=== PATIENT | female | born 1985 | race Caucasian/White ===

== ENCOUNTER → 2017-10-21 | Outpatient (CLI) | payer BC ==
[~2017-10-21] MED LIST: LEVO125T72 PO; PRENTAB26 PO
[2017-10-21 12:12] LABS: BASO % 0.3 %; BASO ABS # 0.02 K/uL (0-0.2); EOS % 1.8 %; EOS ABS # 0.11 K/uL (0-0.5); HEMATOCRIT 38.8 % (37-47); HEMOGLOBIN 13.8 g/dL (12.0-16.0); IG# 0.04 K/uL (0.00-0.02); LYMPH % 28.1 %; LYMPH ABS # 1.71 K/uL (1.2-3.4); MEAN CELL VOLUME 90.7 fL (80-100); MEAN CORPUSCULAR HEMOGLOBIN 32.2 pg (25-34); MEAN CORPUSCULAR HGB CONC 35.6 g/dl (32-36); MEAN PLATELET VOLUME 10.5 fL (7.4-10.4); MONO % 8.7 %; MONO ABS # 0.53 K/uL (0.11-0.59); NEUT % 60.4 %; NEUT ABS # 3.67 K/uL (1.4-6.5); PLATELET COUNT 253 K/uL (130-400); RED CELL DISTRIBUTION WIDTH CV 13.4 % (11.5-14.5); RED CELL DISTRIBUTION WIDTH SD 43.7 fL (36.4-46.3); WHITE BLOOD COUNT 6.08 K/uL (4.8-10.8)
== END | disposition home or self-care (01) ==
LOC: C.LAB1850 09:30
PROVIDERS: ATTEND Obstetrics & Gynecology
DX: O99.280 Endocrine, nutritional and metabolic diseases complicating pregnancy, unspecified trimester (principal); Z3A.00 Weeks of gestation of pregnancy not specified

== ENCOUNTER → 2017-10-21 | Outpatient (CLI) | payer BC | END | disposition home or self-care (01) | LOC: C.PAPS 10:51 | PROVIDERS: ATTEND Obstetrics & Gynecology | DX: Z01.419 Encounter for gynecological examination (general) (routine) without abnormal findings (principal); N87.1 Moderate cervical dysplasia ==

== ENCOUNTER → 2017-12-09 | Outpatient (CLI) | payer BC | END | disposition home or self-care (01) | LOC: C.LAB1850 16:32 | PROVIDERS: ATTEND Obstetrics & Gynecology | DX: Z34.02 Encounter for supervision of normal first pregnancy, second trimester (principal); Z3A.00 Weeks of gestation of pregnancy not specified ==

== ENCOUNTER → 2017-12-22 | Outpatient (CLI) | payer BC | END | disposition home or self-care (01) | LOC: C.LAB1850 07:41 | PROVIDERS: ATTEND Obstetrics & Gynecology | DX: O28.1 Abnormal biochemical finding on antenatal screening of mother (principal) ==

== ENCOUNTER → 2018-03-02 | Outpatient (CLI) | payer BC | END | disposition home or self-care (01) | LOC: C.LABSPEC 17:41 | PROVIDERS: ATTEND Obstetrics & Gynecology | DX: Z34.03 Encounter for supervision of normal first pregnancy, third trimester (principal) ==

== ENCOUNTER → 2018-03-03 | Outpatient (CLI) | payer BC ==
[2018-03-03 09:36] LABS: HEMATOCRIT 35.4 % (37-47); HEMOGLOBIN 12.7 g/dL (12.0-16.0)
== END | disposition home or self-care (01) ==
LOC: C.LAB1850 07:20
PROVIDERS: ATTEND Obstetrics & Gynecology
DX: Z34.03 Encounter for supervision of normal first pregnancy, third trimester (principal); Z3A.00 Weeks of gestation of pregnancy not specified

== ENCOUNTER 2018-05-28 06:31 | Inpatient (IN) | payer BC ==
[~2018-05-28] VITALS: Ht 170.2 cm; Wt 86.2 kg
[2018-05-28] MEDS ORDERED: LACTATED RINGER'S 1000ML 1,000 ML IV PRN (06:55)
[2018-05-28 07:25] LABS: HEMATOCRIT 39.4 % (37-47); HEMOGLOBIN 13.9 g/dL (12.0-16.0); MEAN CELL VOLUME 92.9 fL (80-100); MEAN CORPUSCULAR HEMOGLOBIN 32.8 pg (25-34); MEAN CORPUSCULAR HGB CONC 35.3 g/dl (32-36); MEAN PLATELET VOLUME 10.7 fL (7.4-10.4); PLATELET COUNT 177 K/uL (130-400); RED CELL DISTRIBUTION WIDTH CV 13.5 % (11.5-14.5); WHITE BLOOD COUNT 14.09 K/uL (4.8-10.8)
[2018-05-28] MEDS ORDERED: BUPIVACAINE 0.25% 30 ML VIAL ONE (07:42)
[2018-05-28] MEDS ORDERED: FENTANYL CITRATE INJ 50 MCG/1 ML 2 ML VIAL ONE (07:43)
[2018-05-28] MEDS ORDERED: EpHEDrine SULFATE INJ 50 MG/ML AMP ONE (07:43)
[2018-05-28] MEDS ORDERED: FENTANYL 2MCG/ML ROPIV 1.25MG/ML 100ML BAG ONE (07:44)
[2018-05-28] MEDS: LACTATED RINGER'S 1000ML 1,000 ML IV SCH ×2 (08:15→08:27)
[2018-05-28] MEDS ORDERED: NALOXONE HCL INJ 1 MG in SODIUM CHLORIDE 0.9% 1000ML 1,000 ML IV PRN (08:38)
[2018-05-28] MEDS ORDERED: LACTATED RINGER'S 1000ML 500 ML IV PRN ×2 (08:38→11:06)
[2018-05-28] MEDS ORDERED: EpHEDrine SULFATE INJ 50 MG/ML AMP IV PRN (08:45)
[2018-05-28] MEDS ORDERED: NALOXONE HCL INJ 0.4 MG/1 ML VIAL/CARP IV PRN (08:45)
[2018-05-28] MEDS ORDERED: DiphenhydrAMINE HCL 50 MG/ML VIAL IV PRN (08:45)
[2018-05-28] MEDS ORDERED: FENTANYL 2MCG/ML ROPIV 1.25MG/ML 100ML BAG EPI PRN (08:45)
[2018-05-28] MEDS ORDERED: NALBUPHINE HCL INJ 10 MG/ML 1ML AMP IV PRN (08:45)
[2018-05-28] MEDS ORDERED: ONDANSETRON INJ 2 MG/ML 2 ML VIAL IV PRN (08:45)
[2018-05-28] MEDS ORDERED: PRENTAB26 PO (09:26)
[2018-05-28] MEDS ORDERED: LEVO125T72 PO (09:26)
[2018-05-28 09:30] VITALS: Ht 170.2 cm; Wt 86.2 kg
[2018-05-28] MEDS ORDERED: OXYTOCIN 30 UNITS/500ML NSS IV PRN ×2 (11:15→12:45)
[2018-05-28] MEDS ORDERED: OXYTOCIN INJ 20 UNITS in LACTATED RINGER'S 1000ML 1,000 ML IV SCH (12:38)
[2018-05-28] MEDS ORDERED: LANOLIN OINT EXT PRN (12:45)
[2018-05-28] MEDS ORDERED: ACETAMINOPHEN 325 MG TAB PO PRN (12:45)
[2018-05-28] MEDS ORDERED: DIPHTHERIA/TETANUS/PERTUSSIS 0.5 ML SYR/VIAL IM. ONE (12:45)
[2018-05-28] MEDS ORDERED: SUPERCREAM 0.870 % 15GM JAR EXT PRN (12:45)
[2018-05-28] MEDS ORDERED: BENZOCAINE 20% AER SPR 82.5 GM CAN EXT PRN (12:45)
[2018-05-28] MEDS ORDERED: HYDROCORTISONE ACETATE 25 MG SUPP PR PRN (12:45)
[2018-05-28] MEDS ORDERED: OXYCODONE/ACETAMINOPHEN 5-325 TAB PO PRN (12:45)
--- NOTE | 2018-05-28 12:59 | DELIVERY SUMMARY ---
DATE OF OPERATION: 05/28/2018 The patient dilated to complete and pushed to deliver a viable female infant, Apgars 8 and 9 via over second degree perineal laceration. Mouth and nose bulb suctioned at the perineum. vigorous at . Cord clamped and to maternal abdomen where the cord was then doubly clamped and cut. Of note, there was meconium-stained fluid. Placenta was delivered spontaneously and intact, 3-vessel cord. Hemostasis was achieved with dilute Pitocin and uterine massage. Cervix and sulci intact. Laceration repaired in usual fashion using 3-0 Vicryl. EBL 300 mL. Mother and baby stable in recovery. I attest to the content of the Intraoperative Record and any orders documented therein. Any exceptions are noted below. MTDD
--- NOTE | 2018-05-28 14:33 | Anesthesia Procedure Note ---
Anesthesia Epidural Removal Nt Date & Time May 28, 2018 at 14:33 Vital Signs Pain Intensity: 0.0 Notes Mental Status: alert / awake / arousable, participated in evaluation Nausea / Vomiting: adequately controlled Pain: adequately controlled Airway Patency, RR, SpO2: stable & adequate BP & HR: stable & adequate Hydration State: stable & adequate Neuraxial Anesthesia: was administered, sensory block is resolving Anesthetic Complications: no major complications apparent, pt satisfied with anesthetic care Epidural: removed without complications, with tip intact
[2018-05-28] MEDS: IBUPROFEN 600 MG TAB PO PRN ×2 (15:35→20:14)
[2018-05-28 16:00] VITALS: BP 109/66; PULSE 66; TEMP 36.8
[2018-05-28] MEDS: DOCUSATE SODIUM 100 MG CAP PO SCH (20:14)
[2018-05-28 20:15] VITALS: BP 108/71; PULSE 65; TEMP 36.5
[2018-05-28 23:05] VITALS: BP 115/76; PULSE 63; TEMP 36.6
[2018-05-29] MEDS: IBUPROFEN 600 MG TAB PO PRN ×5 (00:16→19:45)
[2018-05-29 03:45] VITALS: BP 115/67; PULSE 68; TEMP 36.9
--- NOTE | 2018-05-29 07:25 | Progress Note ---
Subjective May 29, 2018. Subjective conversation w/ patient Ambulation: ambulating normally Voiding: no voiding problems Passing Gas: Yes Diet Tolerance: Regular Diet Lochia: Moderate Pain: Improving Review of Systems Constitutional: No fever, No chills Respiratory: No shortness of breath Cardiac: No chest pain, No palpitations Abdomen: No nausea, No vomiting Female : No dysuria Objective Vital Signs Date Time Temp Pulse Resp B/P (MAP) Pulse Ox O2 Delivery O2 Flow Rate FiO2 05/29/18 03:45 36.9 68 18 115/67 (83) Room Air 05/28/18 23:05 36.6 63 20 115/76 (89) Room Air 05/28/18 23:05 Room Air 05/28/18 20:15 36.5 65 18 108/71 (83) Room Air 05/28/18 16:00 Room Air 05/28/18 16:00 36.8 66 16 109/66 (80) Room Air Physical Exam General Appearance: WELL-APPEARING, NO APPARENT DISTRESS Respiratory/Chest: normal breath sounds, no respiratory distress Cardiovascular: regular rate, rhythm Abdomen: soft Fundus: Firm Extremities: no calf tenderness Medications Current Inpatient Medications Medications (Trade) Dose Ordered Sig/Kp Route Start Time Stop Time Status Last Admin Dose Admin Levothyroxine Sodium (Synthroid Tab) 125 mcg DAILYBB PO 05/29/18 07:30 06/28/18 07:29 Oxytocin (Pitocin IV) 30 units UD PRN IV 05/28/18 12:45 06/27/18 12:44 05/28/18 14:27 30 UNITS Benzocaine (Dermoplast Aero Spr) 1 appln PRN PRN EXT 05/28/18 12:45 06/27/18 12:44 05/28/18 15:35 1 APPLN Cocaine HCl (Supercream 0.870% Cr) BID PRN EXT 05/28/18 12:45 06/11/18 12:44 Hydrocortisone Acetate (Anusol Hc Supp) 25 mg BID PRN NE 05/28/18 12:45 06/27/18 12:44 Lanolin (Lanolin Oint) PRN PRN EXT 05/28/18 12:45 06/27/18 12:44 Ibuprofen (Motrin Tab) 600 mg Q4H PRN PO 05/28/18 12:45 06/27/18 12:44 05/29/18 04:17 600 MG Acetaminophen (Tylenol Tab) 650 mg Q6H PRN PO 05/28/18 12:45 06/27/18 12:44 05/28/18 18:23 650 MG Oxycodone/ Acetaminophen (Percocet 5-325mg Tab) 1 tab Q4H PRN PO 05/28/18 12:45 06/11/18 12:44 Docusate Sodium (coLACE CAP) 100 mg BID PO 05/28/18 20:00 06/27/18 19:59 05/28/18 20:14 100 MG Assessment and Plan Post- Day#: 1 Continue Routine Care: Analgesia PRN Escalate diet as needed Ambulation encouraged. PGY [address] Cespedes Resident Physician Supervision Note: I was present with Dr. Cespedes during the history and exam. I discussed the case with the resident and agree with the findings and plan as documented in the note. Any exceptions or clarifications are listed here: Doing well. routine care. should already have regular diet. Documented By: Trinity Espinoza
[2018-05-29] MEDS: LEVOTHYROXINE 125 MCG TAB PO SCH (07:56)
[2018-05-29] MEDS: DOCUSATE SODIUM 100 MG CAP PO SCH ×2 (07:56→19:44)
[2018-05-29 08:00] VITALS: BP 111/72; PULSE 66; TEMP 36.7; O2SAT 97
[2018-05-29 11:42] VITALS: BP 107/68; PULSE 66; TEMP 36.6; O2SAT 96
[2018-05-29 15:35] VITALS: BP 118/73; PULSE 66; TEMP 36.9; O2SAT 96; O2SAT 97
[2018-05-30 00:05] VITALS: BP 106/65; PULSE 60; TEMP 36.9; O2SAT 95
[2018-05-30] MEDS: IBUPROFEN 600 MG TAB PO PRN ×2 (00:22→08:52)
--- NOTE | 2018-05-30 07:02 | Progress Note ---
Subjective May 30, 2018. Subjective conversation w/ patient Ambulation: ambulating normally Voiding: no voiding problems Passing Gas: Yes Diet Tolerance: Regular Diet Lochia: Moderate Feeding Type: Breast Feeding Pain: Improving Review of Systems Constitutional: No fever, No chills Respiratory: No shortness of breath Cardiac: No chest pain, No palpitations Abdomen: No nausea, No vomiting Female : No dysuria Objective Vital Signs Date Time Temp Pulse Resp B/P (MAP) Pulse Ox O2 Delivery O2 Flow Rate FiO2 05/30/18 00:05 95 Room Air 05/30/18 00:05 36.9 60 16 106/65 (79) 95 Room Air 05/29/18 15:35 36.9 66 20 118/73 (88) 97 Room Air 05/29/18 15:35 96 Room Air 05/29/18 11:42 36.6 66 18 107/68 (81) 96 Room Air 05/29/18 08:00 36.7 66 18 111/72 (85) 97 Room Air 05/29/18 07:55 Room Air Physical Exam General Appearance: WELL-APPEARING, NO APPARENT DISTRESS Respiratory/Chest: normal breath sounds Cardiovascular: regular rate, rhythm Abdomen: soft Fundus: Firm, Relation to Umbilicus (at umbilicus) Extremities: no calf tenderness Assessment and Plan Post- Day#: 1
--- NOTE | 2018-05-30 07:03 | Discharge Instructions ---
Discharge Instructions Date of Service May 30, 2018. Admission Reason for Admission: Check Labor Discharge Discharge Diagnosis / Problem: Vaginal Delivery Discharge Goals Goal(s): Routine recovery after delivery Medications Continue Dispensed Medications: supercream, dermaplast, tucks, lansinoh Activity Recommendations Activity Limitations: per Instructions/Follow-up section . Instructions / Follow-Up Instructions / Follow-Up ACTIVITY RECOMMENDATIONS: * Gradual return to full activity over the next 2-3 weeks. * No lifting - nothing heavier than baby over the next 2-3 weeks. * Do not engage in vigorous exercise, sexual activity or sports until cleared by your physician. * Do not drive or operate any motorized equipment until cleared by your physician. * You may shower/bathe daily. MEDICATIONS: For discomfort or pain, you may use Acetaminophen (Tylenol), Ibuprofen (Advil), or Naproxen (Aleve) following the package directions. For constipation you may use Colace following the package directions. BREAST CARE: If you are not breast feeding: * Wear a supportive bra 24 hours a day for one to two weeks. * Avoid stimulating your breasts and nipples as much as possible during the first few weeks after delivery. * When taking a shower, have the warm water hit your back, not breasts. * When your breasts feel full, apply ice packs. Usually three to four times a day helps ease the discomfort. * Take a mild pain medication (Tylenol / Motrin) when you are uncomfortable. If breast feeding: * Use breast milk to lubricate nipples. Lansinoh cream may be used for sore nipples. You do not need to remove cream prior to breast feeding. If using a different brand of cream, check the label for directions regarding removal of cream prior to nursing. * Wear a supportive bra. * If having problems with breasts or breast feeding, call a incident response consultant or your health care provider. EPISIOTOMY CARE: After delivery, if you have an episiotomy (stitches), the following steps will ease discomfort and aid healing. * For the first 24 hours after delivery, place ice packs next to your episiotomy to help reduce swelling. * After the first 24 hour-period, sitz baths, either portable or in the tub, are suggested. A shower with a shower arm sprayed over the episiotomy may be comforting. * Jihan care should be done after each voiding and bowel movement. Squirt warm water from a plastic bottle over the perineum (region of the body between the anus and urinary opening) and pat dry. * Use Dermoplast to ease discomfort. Shake container. Weikert directly over the episiotomy. Place a Tucks on a clean sanitary pad next to your episiotomy. SPECIAL CARE INSTRUCTIONS: When you are discharged from the hospital, it is important for you to follow the instructions listed below: * During the first week at home, you should be able to care for yourself and your baby. In addition, the usual light household activities are encouraged. * Limit your activities to the way you feel. Do not try to clean the house or move furniture. Be sensible. * If you actively engage in sports and have done so up until the time of your delivery, you may resume these activities as soon as you feel able. This may take up to one month or even longer. Use good judgment. * Continue to take your vitamins for at least six weeks after the of your baby. * Your diet need not be limited unless you were on a special diet before your delivery. Breast-feeding mothers need around 2500 calories per day and at least 64-80 ounces of fluid per day (8 to 10 glasses). * You should eat foods from the four major food groups. Crash diets or fad diets are to be avoided. Eating lean meats, fresh fruits and vegetables, low-fat dairy products, high fiber foods and a regular exercise program, will help you get back to your pre- weight without putting your health at risk. * Constipation is sometimes a problem after delivery. Take a mild laxative as needed. If breast feeding, Milk of Magnesia is acceptable to use. You may use a suppository or Fleets enema if no episiotomy. * A daily shower or tub bath is suggested. Be sure to thoroughly and gently dry the perineum. * A bloody vaginal discharge will usually continue until around four weeks post . A small amount of bleeding may continue for as long as six weeks. Vaginal discharge changes from the bright red bleeding after delivery to pink then brownish and finally yellowish-pink before becoming white and disappearing. * Bleeding may increase with activity. Your first period may come in 4-8 weeks. If you are breast feeding, your period may be delayed even longer. * Gomer (sex) can begin whenever both you and your partner feel comfortable and do not have any form of genital infection. It is recommended that you wait at least six weeks for internal and external healing to occur. If you have questions, please talk to your health care practitioner. A condom should be used to prevent infection and . * Foreplay, gentle intercourse and lubrication is very important the first several times to prevent pain. A water-based lubricant such as K-Y jelly or Astroglide may be used. * If you have RH negative blood and your baby is RH positive, you will receive RHOGAM by injection prior to discharge. The nurse will give you a card to keep with you that has the date and place that you received RHOGAM after delivery. * During your care, you had a Rubella screen done to check for the presence of rubella antibodies in your blood. If your test was negative, you will receive a Rubella vaccine prior to discharge. This vaccine may cause a fever, soreness at the injection site and flu-like symptoms. If these symptoms persist, notify your health care practitioner. is not advised for one month after a Rubella vaccine. * Verbalizes understanding of car seat law as reviewed with patient nursing. * Car Seat hand-out given and reviewed with patient by nursing. * Shaken baby information reviewed with patient by nursing. Call you doctor if: * Heavy bleeding (saturating several pads an hour) or passing clots the size of your fist. * A fever >101 degrees F (38.3 degrees C) on two occasions four hours apart and /or chills. * Unusual pain in the pelvic or vaginal areas. * "Baby Blues" lasting longer than two weeks. If you have any questions or concerns, call your health care practitioner at . FOLLOW UP VISIT: * Please call the office at to schedule a 6 week examination. It is important you keep this appointment. It is important for you to make arrangements for either yearly or twice yearly check-ups thereafter. Current Hospital Diet Patient's current hospital diet: Regular OB Diet Discharge Diet Recommended Diet: Regular OB Diet Pending Studies Studies pending at discharge: no Medical Emergencies . Who to Call and When: Medical Emergencies: If at any time you feel your situation is an emergency, please call 911 immediately. . Non-Emergent Contact Non-Emergency issues call your: Primary Care Provider . . "Provider Documentation" section prepared by Ashlee Cespedes. .
[2018-05-30 07:40] VITALS: BP 122/78; PULSE 57; TEMP 36.6; O2SAT 99
--- NOTE | 2018-05-30 07:43 | Progress Note ---
Subjective May 30, 2018. Subjective conversation w/ patient Ambulation: ambulating normally Voiding: no voiding problems Passing Gas: Yes Diet Tolerance: Regular Diet Lochia: Moderate Feeding Type: Breast Feeding Pain: Improving Review of Systems Respiratory: No shortness of breath Cardiac: No chest pain, No palpitations Abdomen: No nausea, No vomiting Female : No dysuria Objective Vital Signs Date Time Temp Pulse Resp B/P (MAP) Pulse Ox O2 Delivery O2 Flow Rate FiO2 05/30/18 00:05 95 Room Air 05/30/18 00:05 36.9 60 16 106/65 (79) 95 Room Air 05/29/18 15:35 36.9 66 20 118/73 (88) 97 Room Air 05/29/18 15:35 96 Room Air 05/29/18 11:42 36.6 66 18 107/68 (81) 96 Room Air 05/29/18 08:00 36.7 66 18 111/72 (85) 97 Room Air 05/29/18 07:55 Room Air Physical Exam General Appearance: WELL-APPEARING, NO APPARENT DISTRESS Respiratory/Chest: normal breath sounds, no respiratory distress Cardiovascular: regular rate, rhythm Abdomen: soft Fundus: Firm Extremities: no calf tenderness Assessment and Plan Post- Day#: 2 Continue Routine Care: Continue Routine Care Analgesia prn Ambulation encouraged Discharge today, follow-up in 6 weeks. PGY1 Resident, Ashlee Cespedes MD Resident Physician Supervision Note: I was present with Dr. Cespedes during the history and exam. I discussed the case with the resident and agree with the findings and plan as documented in the note. Any exceptions or clarifications are listed here: PPD#2 doing well. DC home today. Instructions discussed. Documented By: Tete Talbot Resident Involvement: Resident Care Provided Care Provided: OB Delivery
[2018-05-30] MEDS: LEVOTHYROXINE 125 MCG TAB PO SCH (07:47)
[2018-05-30] MEDS: DOCUSATE SODIUM 100 MG CAP PO SCH (08:52)
[2018-05-30 12:48] VITALS: BP_DIAS 78; PULSE 57; TEMP 36.6
== END 2018-05-30 13:20 | disposition home or self-care (01) | DRG 775 ==
LOC: C.OPB 06:31 → C.LD 06:32 → C.OPB 06:58 → C.OBG 16:05
PROVIDERS: ADMIT Obstetrics & Gynecology; ATTEND Obstetrics & Gynecology
PROC: 0KQM0ZZ Repair Perineum Muscle, Open Approach (ICD-10-PCS; principal; 2018-05-28)
PROC: 10E0XZZ Delivery of Products of Conception, External Approach (ICD-10-PCS; principal; 2018-05-28)
DX: O48.0 Post-term pregnancy (principal); O70.1 Second degree perineal laceration during delivery; O77.0 Labor and delivery complicated by meconium in amniotic fluid; O99.284 Endocrine, nutritional and metabolic diseases complicating childbirth; E03.9 Hypothyroidism, unspecified; Z3A.41 41 weeks gestation of pregnancy; Z37.0 Single live birth

== ENCOUNTER 2021-02-21 04:12 | Inpatient (IN) ==
[2021-02-21] MEDS ORDERED: OXYTOCIN 30 UNITS/500 ML BAG IV PRN ×3 (05:11→14:13)
[2021-02-21 05:42] LABS: Hematocrit (blood only) 38.1 % (37-47); Hemoglobin 13.4 g/dL (12.0-16.0); Mean Corpuscular Hemoglobin 31.9 pg (25-34); Mean Corpuscular Hgb Conc 35.2 g/dL (32-36); Mean Corpuscular Volume 90.7 fL (80-100); Mean Platelet Volume 10.7 fL (7.4-10.4); Platelet Count 209 K/uL (130-400); RDW Coefficient of Variation 14.3 % (11.5-14.5); RDW Standard Deviation 46.9 fL (36.4-46.3)
[2021-02-21] MEDS: LACTATED RINGER'S 1,000 ML IV PRN ×2 (08:13→09:19)
[2021-02-21] MEDS ORDERED: NALOXONE HCL 0.4 MG/1 ML VIAL/CARP IV PRN (08:31)
[2021-02-21] MEDS ORDERED: ePHEDrine sulfate 50 MG/ML AMP IV PRN (08:31)
[2021-02-21] MEDS ORDERED: ONDANSETRON INJ 2 MG/ML 2 ML VIAL IV PRN (08:31)
[2021-02-21] MEDS ORDERED: NALOXONE HCL 1 MG in SODIUM CHLORIDE 0.9% 1000ML 1,000 ML IV PRN (08:31)
[2021-02-21] MEDS ORDERED: diphenhydrAMINE 50 MG/ML VIAL IV PRN (08:31)
[2021-02-21] MEDS ORDERED: fentaNYL 2MCG/ML ROPIVACAINE 1.25MG/ML 100 ML BAG EPI PRN (08:31)
--- NOTE | 2021-02-21 08:32 | Anesthesiology Consultation ---
Date of Service February 21, 2021 Assessment & Plan (1) Encounter for pre-operative examination: Chart Review Chart Review: Patient NOT seen in Pre Admission Testing and Acceptable Risk for Labor Epidural Consults Requested none History Height/Weight Height: 5 ft 6 in Weight: 94.801 kg Allergies Allergy/AdvReac Type Severity Reaction Status Date / Time Penicillins Allergy Unknown Unknown Verified 02/21/21 04:30 childhood reaction Medications Home Medications Medication Instructions Recorded Confirmed Last Taken acetaminophen 500 mg tablet 500 mg PO Q4H PRN tab 07/28/19 02/21/21 02/20/21 22:00 prenat.vits,twila,[id number] 1 tab PO DAILY 07/13/20 02/21/21 02/20/21 18:30 docosahexaenoic acid 200 mg capsule 200 mg PO DAILY 07/14/20 02/21/21 02/20/21 18:30 levothyroxine 137 mcg capsule 150 mcg PO DAILY cap 09/11/20 02/21/21 02/20/21 05:00 docusate sodium 100 mg capsule 100 mg PO DAILY PRN 02/12/21 02/21/21 02/20/21 22:00 cetirizine [Zyrtec] 10 mg PO DAILY 02/21/21 02/21/21 02/20/21 22:00 Active Medications Generic Name Dose Route Start Last Admin Trade Name Freq PRN Reason Stop Dose Admin Lactated Ringer's 1,000 mls @ 125 mls/hr 02/21/21 05:11 02/21/21 08:13 Lr IV 02/23/21 05:10 999 mls/hr .Q8H PRN Administration L&D Protocol Protocol Past Medical History Medical History Asthma rare prn use of inhaler Encounter for supervision of normal in multigravida, antepartum H/O varicella Hypothyroid in , antepartum Moderate cervical dysplasia Moderate cervical dysplasia, histologically confirmed Routine gynecological examination Exercise / Class Metabolic Activity II 4-5 Yardwork/Stairs/Walk up hill Past Family History Family History Mother Dyslipidemia Osteopenia Hypothyroidism Father Depression Sister Depression Other Colorectal cancer Denies family history of Ovarian cancer Breast cancer Past Surgical History Surgical History S/P LEEP of cervix S/P wisdom tooth extraction Status post colposcopy Past Anesthesia History No Hx of Anesthesia Complications and No Family Hx of Anesthesia Complications History of PONV No Hx of PONV and No Hx of Motion Sickness Social History Smoking Status: Never smoker Hx Alcohol Use: No Hx Substance Use: No substance use type: does not use Physical Exam Vital Signs Last Vital Signs Temp 36.6 C 02/21/21 07:00 Pulse 75 02/21/21 08:52 Resp 16 02/21/21 07:00 BP 120/76 02/21/21 08:17 Pulse Ox 100 02/21/21 08:52 Testing Laboratory Results 02/21/21 05:27
[2021-02-21] MEDS ORDERED: ePHEDrine sulfate 50 MG/ML AMP ONE (09:18)
[2021-02-21] MEDS ORDERED: fentaNYL 2MCG/ML ROPIVACAINE 1.25MG/ML 100 ML BAG EPI ONE (09:18)
[2021-02-21] MEDS ORDERED: fentaNYL citrate 100 MCG/2 ML VIAL ONE (09:18)
[2021-02-21] MEDS ORDERED: BUPIVACAINE 0.25% 30 ML VIAL ONE (09:18)
[2021-02-21] MEDS ORDERED: SODIUM CHLORIDE 0.9% INJ 10 ML VIAL ONE (09:18)
--- NOTE | 2021-02-21 10:01 | History & Physical Report ---
Date of Service February 21, 2021 Assessment & Plan (1) Supervision of elderly multigravida, antepartum: Admitted for labor Admission and Anticipated Discharge Date Admission Date: February 21, 2021 History of Present Illness Chief Complaint: SROM Primary Care Provider: Mitch Arauz DO 35yo @ 39 /, SROM 2am, admitted overnight. AMA, Hypothyroidism. Allergies Allergy/AdvReac Type Severity Reaction Status Date / Time Penicillins Allergy Unknown Unknown Verified 02/21/21 04:30 childhood reaction Home Medications Medication Instructions Recorded Confirmed Type acetaminophen 500 mg tablet 500 mg PO Q4H PRN tab 07/28/19 02/21/21 History prenat.vits,twila,[id number] 1 tab PO DAILY 07/13/20 02/21/21 History docosahexaenoic acid 200 mg capsule 200 mg PO DAILY 07/14/20 02/21/21 History levothyroxine 137 mcg capsule 150 mcg PO DAILY cap 09/11/20 02/21/21 History docusate sodium 100 mg capsule 100 mg PO DAILY PRN 02/12/21 02/21/21 History cetirizine [Zyrtec] 10 mg PO DAILY 02/21/21 02/21/21 History Patient History Medical History Asthma rare prn use of inhaler Encounter for supervision of normal in multigravida, antepartum H/O varicella Hypothyroid in , antepartum Moderate cervical dysplasia Moderate cervical dysplasia, histologically confirmed Routine gynecological examination Surgical History S/P LEEP of cervix S/P wisdom tooth extraction Status post colposcopy Family History Mother Dyslipidemia Osteopenia Hypothyroidism Father Depression Sister Depression Other Colorectal cancer Denies family history of Ovarian cancer Breast cancer Social History (Updated 07/14/20 @ 15:11 by Puja Sharp) Smoking Status: Never smoker Second Hand Exposure: No; Hx Alcohol Use: No Hx Substance Use: No Preferred Language: Togolese Communication Ability: Effective Beliefs That Will Affect Care: None marital status: marital status details: Willem (33) [phone] Current Living Situation: Spouse and Family Current Living Situation Comment: 2.5 year old daughter current occupational status: employed current occupation: school psychologist @ [employer] Other Information That Helps Us Care for You: No Feels Safe at Home: Yes Safety Concerns: Feels Safe At This Time Assistive Devices: Contacts and Glasses Review of Systems All systems reviewed & are unremarkable except as noted in HPI & below Physical Exam Constitutional: WD/WN, vitals as above Respiratory: normal respiratory effort, lungs clear to auscultation no respiratory distress Cardiovascular: Rate/Rhythm: regular rate and regular rhythm Gastrointestinal (Abdomen): Inspection/Auscultation: abdomen normal to inspection Percussion/Palpation: abdomen soft; abdomen nontender Gravid. No s/s chorio or abruption. Skin: no rashes, warm and dry Psychiatric: A+Ox3, euthymic affect Results & Data ([facility] Vital Signs (Past 12 Hours) Vital Signs Temp Pulse Resp BP Pulse Ox 02/21/21 09:57 82 94 02/21/21 09:52 75 95 02/21/21 09:47 55 L 95 02/21/21 09:46 64 121/75 02/21/21 09:42 71 96 02/21/21 09:40 64 109/72 02/21/21 09:39 75 94 02/21/21 09:37 59 L 95 02/21/21 09:36 54 L 116/72 02/21/21 09:32 56 L 94 02/21/21 09:30 54 L 16 119/71 02/21/21 09:27 63 96 02/21/21 09:26 64 116/69 94 02/21/21 09:22 65 96 02/21/21 09:21 92 H 93 02/21/21 09:19 59 L 118/69 02/21/21 09:17 60 120/68 96 02/21/21 09:15 65 120/72 02/21/21 09:14 36.5 C 02/21/21 09:13 64 113/69 02/21/21 09:12 64 96 02/21/21 09:11 63 115/71 02/21/21 09:09 62 105/59 L 02/21/21 09:07 60 100/56 L 97 02/21/21 09:05 68 103/61 02/21/21 09:03 68 100/64 02/21/21 09:02 69 99 02/21/21 09:01 79 98/56 L 02/21/21 09:00 20 02/21/21 08:59 66 101/55 L 02/21/21 08:57 59 L 101/58 L 100 02/21/21 08:55 67 123/57 L 92 02/21/21 08:52 75 100 02/21/21 08:47 68 100 02/21/21 08:42 70 97 02/21/21 08:37 73 100 02/21/21 08:32 69 100 02/21/21 08:27 70 100 02/21/21 08:17 69 120/76 100 02/21/21 07:03 58 L 124/77 02/21/21 07:00 36.6 C 16 02/21/21 04:35 36.6 C 68 18 119/65 02/21/21 04:27 36.6 C 68 18 119/65 Monitoring External Monitor FHT Cat 1 Tocodynamometer [place] Q 2 Coding Level of Care Code None Diagnoses Supervision of elderly multigravida, antepartum O09.529
--- NOTE | 2021-02-21 13:00 | Labor Progress Brief Note ---
Date of Service February 21, 2021 Subjective Increased pressure. SVE 10/100/+1 FHT Cat 1 [place] Q 2 Will begin to push. Assessment & Plan Admission and Anticipated Discharge Date Admission Date: February 21, 2021 Results & Data ([facility] Vital Signs (Past 12 Hours) Vital Signs Temp Pulse Resp BP Pulse Ox 02/21/21 12:57 66 99 02/21/21 12:52 60 99 02/21/21 12:49 55 L 107/62 02/21/21 12:47 59 L 98 02/21/21 12:42 56 L 99 02/21/21 12:37 56 L 98 02/21/21 12:34 54 L 110/65 02/21/21 12:32 54 L 98 02/21/21 12:30 16 02/21/21 12:27 52 L 98 02/21/21 12:22 54 L 98 02/21/21 12:19 54 L 108/60 02/21/21 12:17 54 L 97 02/21/21 12:12 53 L 97 02/21/21 12:07 57 L 98 02/21/21 12:03 54 L 105/61 02/21/21 12:02 59 L 98 02/21/21 12:00 18 02/21/21 11:57 57 L 98 02/21/21 11:52 62 98 02/21/21 11:48 50 L 106/61 02/21/21 11:47 57 L 97 02/21/21 11:42 56 L 97 02/21/21 11:37 53 L 96 02/21/21 11:33 58 L 102/58 L 02/21/21 11:32 54 L 96 02/21/21 11:27 57 L 96 02/21/21 11:22 56 L 96 02/21/21 11:21 57 L 103/58 L 02/21/21 11:17 63 96 02/21/21 11:12 63 95 02/21/21 11:07 72 95 02/21/21 11:03 76 106/77 02/21/21 11:02 73 94 02/21/21 11:00 16 02/21/21 10:57 61 93 02/21/21 10:52 57 L 95 02/21/21 10:48 78 108/76 02/21/21 10:47 89 94 05 10:42 73 94 05 10:37 75 94 02/21/21 10:33 88 103/75 02/21/21 10:32 65 94 02/21/21 10:30 16 05 10:27 66 94 02/21/21 10:22 64 94 02/21/21 10:19 95 H 113/76 02/21/21 10:17 58 L 95 02/21/21 10:12 95 02/21/21 10:07 55 L 94 02/21/21 10:04 61 113/75 02/21/21 10:02 89 95 02/21/21 10:00 18 02/21/21 09:57 82 94 02/21/21 09:52 75 95 02/21/21 09:47 55 L 95 02/21/21 09:46 64 121/75 02/21/21 09:42 71 96 02/21/21 09:40 64 109/72 02/21/21 09:39 75 94 02/21/21 09:37 59 L 95 02/21/21 09:36 54 L 116/72 02/21/21 09:32 56 L 94 02/21/21 09:30 54 L 16 119/71 02/21/21 09:27 63 96 02/21/21 09:26 64 116/69 94 02/21/21 09:22 65 96 02/21/21 09:21 92 H 93 02/21/21 09:19 59 L 118/69 02/21/21 09:17 60 120/68 96 02/21/21 09:15 65 120/72 02/21/21 09:14 36.5 C 02/21/21 09:13 64 113/69 02/21/21 09:12 64 96 02/21/21 09:11 63 115/71 02/21/21 09:09 62 105/59 L 02/21/21 09:07 60 100/56 L 97 02/21/21 09:05 68 103/61 02/21/21 09:03 68 100/64 02/21/21 09:02 69 99 02/21/21 09:01 79 98/56 L 02/21/21 09:00 20 02/21/21 08:59 66 101/55 L 02/21/21 08:57 59 L 101/58 L 100 02/21/21 08:55 67 123/57 L 92 02/21/21 08:52 75 100 02/21/21 08:47 68 100 02/21/21 08:42 70 97 02/21/21 08:37 73 100 02/21/21 08:32 69 100 02/21/21 08:27 70 100 02/21/21 08:17 69 120/76 100 02/21/21 07:03 58 L 124/77 02/21/21 07:00 36.6 C 16 02/21/21 04:35 36.6 C 68 18 119/65 02/21/21 04:27 36.6 C 68 18 119/65 Coding Level of Care Code None
[2021-02-21] MEDS ORDERED: SUPERCREAM 0.870% 15 GM JAR EXT PRN (14:13)
[2021-02-21] MEDS ORDERED: ACETAMINOPHEN 325 MG TAB PO PRN (14:13)
[2021-02-21] MEDS ORDERED: BENZOCAINE 20% AER SPR 82.5 GM CAN EXT PRN (14:13)
[2021-02-21] MEDS ORDERED: DIPHTHERIA/TETANUS/PERTUSSIS 0.5 ML SYR/VIAL IM ONE (14:13)
[2021-02-21] MEDS ORDERED: bisacodyL 10 MG SUPP PR PRN (14:13)
[2021-02-21] MEDS ORDERED: HYDROCORTISONE ACETATE 25 MG SUPP PR PRN (14:13)
[2021-02-21] MEDS ORDERED: oxyCODONE/ACETAMINOPHEN 5mg/325mg TAB PO PRN (14:13)
[2021-02-21] MEDS ORDERED: IBUPROFEN 600 MG TAB PO ONE (14:22)
--- NOTE | 2021-02-21 15:38 | Delivery Summary ---
Vaginal Delivery Summary Date of Service February 21, 2021 Vaginal Delivery Summary and 2nd Degree LAC Vaginal Delivery Summary: Pre-delivery diagnoses: 35yo @ 39 6/7, SROM spontaneous labor Post-delivery diagnoses: same Procedure: spontaneous vaginal delivery, repair of 2nd degree perineal laceration Surgeon: Tete Talbot DO Complications: none Findings: Viable female . Apgars: 9/9. Weight 10#6. Estimated blood loss: 300ml Description of delivery: The patient progressed to complete with epidural anesthesia. She then began to push. She spontaneously vaginally delivered a viable from the cephalic presentation. The head delivered in ROP position. The anterior shoulder delivered, followed by the posterior shoulder, followed by the body. No nuchal. The baby was placed on mother's abdomen and a spontaneous cry was heard. Delayed cord clamping was employed, and the cord was doubly clamped and cut. Cord blood was obtained. The placenta was delivered spontaneously intact with a 3-vessel cord. The uterus and vagina were swept of clots and debris. IV pitocin was given. The uterus became firm. The cervix, vagina, and perineum were inspected and a 2nd degree perineal laceration was noted, repaired with 3-0 vicryl in standard fashion. An additional stitch of 3- 0 chromic was used to pull the tissue together above anal sphincter, although anal sphincter muscle was intact. Excellent hemostasis was observed. The mother and baby are recovering in stable and good condition in the room. Sponge, needle and instrument counts were correct x 2. Tete Talbot DO [facility] V[facility]inal Delivery Charge Vaginal Delivery Codes: 98556 global code for the antepartum, delivery, and post- Delivery Type Details: and 2nd Degree LAC
--- NOTE | 2021-02-21 15:58 | Anesthesia Procedure Note ---
Date of Service February 21, 2021 Anesthesia Post Epidural Note Vital Signs Vital Signs: Temp Pulse Resp BP Pulse Ox 36.6 C 60 18 112/63 97 02/21/21 15:00 02/21/21 15:33 02/21/21 15:00 02/21/21 15:33 02/21/21 13:57 Pain Intensity Bilateral Abdomen: Pain Intensity: 0 Bilateral Head: Pain Intensity: 2 Notes Mental Status: alert / awake / arousable and participated in evaluation Patient Amnestic to Procedure: No Nausea / Vomiting: adequately controlled Pain: adequately controlled Airway Patency, RR, SpO2: stable & adequate BP & HR: stable & adequate Hydration State: stable & adequate Neuraxial Anesthesia: was administered and sensory block is resolving Anesthetic Complications: no major complications apparent and Pt Satisfied with anesthetic care Epidural: Removed without complications and With tip intact
[2021-02-21] MEDS: IBUPROFEN 600 MG TAB PO PRN (20:31)
[2021-02-21] MEDS: DOCUSATE SODIUM 100 MG CAP PO SCH (21:40)
[2021-02-22] MEDS: IBUPROFEN 600 MG TAB PO PRN ×4 (00:03→12:43)
[2021-02-22] MEDS: LEVOTHYROXINE SODIUM 150 MCG TABLET PO SCH ×2 (05:27→05:28)
[2021-02-22 06:24] LABS: Hematocrit (blood only) 33.6 % (37-47); Hemoglobin 11.7 g/dL (12.0-16.0)
--- NOTE | 2021-02-22 06:52 | Obstetrical Progress Note ---
Date of Service <Armando Johnson MD - Last Filed: 02/22/21 06:52> February 22, 2021 Assessment & Plan <Armando Johnson MD - Last Filed: 02/22/21 06:52> (1) Supervision of elderly multigravida, antepartum: Patient is a 35yo female on PPD#1 following at 39+6wga. * Patient feels well today; eating well, voiding well, ambulating well * Pain well-controlled with ibuprofen 600mg q4h prn * PNL: Rh pos, RI, GBS neg, COVID neg * Routine care: OOB, ambulation, diet progression as tolerated * After discharge, will have six-week follow-up with Dr. Talbot Subjective <Armando Johnson MD - Last Filed: 02/22/21 06:52> Patient is a 35yo female on PPD#1 following at 39+6wga. This morning, patient feels well overall. Reports mild, crampy abdominal pain well- managed on analgesics. Tolerating PO intake without nausea or vomiting. Patient has been able to ambulate without lightheadedness or dizziness. Voiding well without difficulty. Lochia is gradually improving over time. Patient is . Review of Systems Denies fever, chills, CP, SOB, cough, breast pain, dysuria, leg pain, leg swelling, headache, and changes in vision. Physical Exam <Armando Johnson MD - Last Filed: 02/22/21 06:52> General: alert, oriented, no acute distress Cardiac: regular rate and rhythm, no murmur appreciated Respiratory: lungs clear to auscultation bilaterally a/p, no w heezes/rales/rhonchi, no increased work of breathing, symmetrical chest rise, no respiratory distress Abd: normal gravid abdomen, soft, minimally tender, BS present : uterine fundus firm, palpable 2-3 cm below umbilicus LE: no lower extremity edema bilaterally; no deep calf pain, Madie's negative bilaterally Results & Data ([facility]) <Armando Johnson MD - Last Filed: 02/22/21 06:52> Vital Signs (Past 12 Hours) Vital Signs Temp Pulse Resp BP Pulse Ox 02/22/21 03:58 36.8 C 66 18 113/72 02/21/21 23:46 36.7 C 60 18 110/68 02/21/21 20:15 36.5 C 71 16 106/67 95 <Tete Talbot DO - Last Filed: 02/22/21 08:12> Co-Signing Physician Notes Resident Physician Supervision Note: I was present with Dr. Johnson during the history and exam. I discussed the case with the resident and agree with the findings and plan as documented in the note. Any exceptions or clarifications are listed here: PPD#1 doing well. No concerns. Desires discharge home. DC instructions reviewed, followup 6w PP. Documented By: Tete Talbot DO Resident Activity Tracking <Armando Johnson MD - Last Filed: 02/22/21 06:52> Resident Involvement: Resident Care Provided Care Provided: OB Delivery
[2021-02-22] MEDS ORDERED: PRENATAL VITAMIN 1 TAB PO SCH (08:00)
[2021-02-22] MEDS: DOCUSATE SODIUM 100 MG CAP PO SCH (08:38)
[2021-02-22] MEDS ORDERED: CETIRIZINE HCL 10 MG TABLET PO SCH (09:00)
[2021-02-22] MEDS ORDERED: bisacodyL 5 MG TABEC PO SCH (20:00)
== END 2021-02-22 16:30 | disposition home or self-care (01) | DRG 807 ==
LOC: OPB 04:12 → 4S1 04:15 → 4S2 17:50
DX: Z3A.39 39 weeks gestation of pregnancy; O99.280 Endocrine, nutritional and metabolic diseases complicating pregnancy, unspecified trimester; E03.9 Hypothyroidism, unspecified; O42.92 Full-term premature rupture of membranes, unspecified as to length of time between rupture and onset of labor; O70.1 Second degree perineal laceration during delivery; Z37.0 Single live birth